=== PATIENT | female | born 1940 | race Caucasian/White ===

== ENCOUNTER → 2023-12-10 10:54 | Outpatient (REF) | payer OTHER, SELFPAY | LOC: RCS 10:54 | PROVIDERS: ATTENDING PHYSICIAN Internal Medicine Cardiovascular Disease; FAMILY PHYSICIAN Family Medicine | DX: I50.20 Unspecified systolic (congestive) heart failure (principal); I47.29 Other ventricular tachycardia; I48.0 Paroxysmal atrial fibrillation; E78.2 Mixed hyperlipidemia; Z95.0 Presence of cardiac pacemaker; Z79.01 Long term (current) use of anticoagulants; I42.8 Other cardiomyopathies | CPT/HCPCS: 93306 ==

== ENCOUNTER 2023-12-26 07:46 | Day surgery (SDC) | payer OTHER, SELFPAY ==
[2023-12-26] VITALS (14 sets, daily range): BP systolic 92–134; BP diastolic 54–89
--- NOTE | 2023-12-26 09:49 | W.ICD.CONTRA ---
Post ICD/LOG SCALER-D
-
History of MD?: No
LV Function
Left ventricular function study result?: Ejection Fraction </= 35%
ACEI/ARB/ARNI
Patient already on ACEI/ARB/ARNI: Yes
Beta-Marty
Patient already on Beta Marty: Yes
--- NOTE | 2023-12-26 14:25 | PTCARENOTE ---
Received patient at 1245 after upgrade BiVICD left upper chest. Patient AAO x 3, pulse ox low 90's and 2L NC given with pulse ox of 97%. Dressing left upper chest is dry and intact, with immobilizer in place. Post EKG done, patient denies any pain
or discomfort. Vpaced on the monitor. Assisted oob to the chair after one hour of bedrest. Call butt in reach, patient is aware to request assistance with ambulation, awaiting lunch.
--- NOTE | 2023-12-26 16:15 | ITS.CL.ICD ---
Lcsw - ICD
Implantable Cardioverter Defibrillator
Procedure Report:
Date of Procedure: December 26, 2023.
Procedures: Upgrade from a dual chamber pacemaker to a Bi-Ventricular ICD implant: Left Ventricular Lead placement, ICD implantation. Pacemaker pulse generator removal. Left upper extremity and coronary sinus venography.
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 Pacing percent over 90%; 3) The patient's life expectancy exceeds one year. Heart failure duration more than 1 year.
Performing physician: Maxi Mathur MD, [facility].
Today's Implants:
Pulse Generator: Medtronic; Model# [id number]; Serial# [id number].
Right Ventricular ICD Lead: Medtronic; Model# 2702Z54; Serial# [id number].
Left Ventricular Lead: Medtronic; Model# 4798-88cm; Serial# [id number].
Retained right atrial lead: Medtronic: Model# 5086MRI-45cm; Serial#: [id number] (implanted 02/18/2012).
Explanted pacemaker pulse generator: Medtronic; Model# [id number]; Serial# [id number] (implanted 02/18/2022).
Capped but reusable RV pacemaker lead:Medtronic; Model# 5086MRI-52cm; Serial#: [id number] (implanted 02/18/2012).
Procedural details: A time out was performed. The procedure site was identified. A left upper extremity venogram revealed patent axillary and subclavian veins. The patient was anesthetized by the anesthesia service. The patient was prepped and
draped in the usual fashion. Cefazolin was administered prior to the skin incision. Local anesthetic was applied to the left prepectoral subcutaneous tissue. The left axillary vein was accessed with two separate percutaneous micro- punctures without
difficulty. A 3 inch incision was made over the pacemaker scar. The leads were introduced with appropriately long 9Fr hemostatic peel away introducer sheaths. The right ventricular lead was placed at the right ventricular apical septum. The coronary
sinus was accessed with the aid of the Attain Command Sure Valve [id number] extended hook catheter within 30 seconds. Coronary sinus venography revealed a posterolateral and lateral veins, both of medium to large caliber. The left ventricular lead was
placed in the lateral vein with the aid of an inner canula. The lead was actively fixated with 3 clockwise turns. 8 volt pacing did not capture the diaphragm from any lead. The leads were secured to the pectoralis muscle and fascia. The pacemaker
pocket was entered and the pacemaker pulse generator explanted. The pocket was revised to allow the ICD to be placed. The RV pacing lead was capped. The old RA and new RV and LV leads were appropriately attached to the new BiV ICD generator device.
The pocket was irrigated with antibiotic solution. The device and leads were placed in the pocket. A [employer], Tyrx absorbable antibiotic envelop was used in the pocket. The incision was closed in three layers with absorbable suture. Steri strips
and an Aquacel dressing were applied. The estimated loss was 30 ml. There were no complications. Device based testing was performed as described below. Defibrillation threshold testing was not performed. IV contrast total: 30 ml. Fluoroscopy:
8.8minutes and DAP 2.48 GyCm2.
System Analysis:
RA lead: Afib: 1.4 mV; Impedance: 399 ohms.
RV lead: R: 7.6 mV; Threshold: 0.5 V @ 0.4 ms; Impedance: 703ohms. HVB 51 ohms
LV lead: Threshold: 1 V @ 0.4 ms; Impedance: 418 ohms. (LV3=>LV2). Electrical separation 180 ms. Many good vectors to chose from.
Final Programming: Tachy: VT/VF:188 bpm; Oscar: DDDR 60-130 bpm.
Conclusion:
Uncomplicated Upgrade to a Biventricular ICD.
The BiV ICD system is not labeled MRI safe/conditional because of the capped RV lead. Many centers will perform MRI on this ICD system if an MRI is clinically needed.
Recommendation: Routine post BiV ICD care.
cc: Khadar Mauro MD and Cristiane Kapoor MD.
[2023-12-26] MEDS: ANCEF 5 IV (16:51)
--- NOTE | 2023-12-26 17:41 | CM ---
spke to pt in room, he is prev indep, lives with his and son in a 2 story home with 2 steps to enter. he denies any dc planning needs or dme's. plan is for dc to home when medically stable.
--- NOTE | 2023-12-26 17:43 | CM ---
spoke to pt in room, she is prev indep, lives with her son in a 2 story home with 2 steps to enter. he denies any dc planning needs or dme's. plan is for dc to home when medically stable.
[2023-12-26] MEDS: TOPROL XL 50 MG PO (19:53)
[2023-12-26] MEDS: LIPITOR 10 MG PO (22:05)
[2023-12-27] MEDS: ANCEF 5 IV (00:12)
[2023-12-27] MEDS: FLUSH (NSS) 2 FLUSH IV (00:12)
--- NOTE | 2023-12-27 00:42 | PTCARENOTE ---
Pt. V-paced on the monitor, VSS. Left upper chest dressing CDI with good peripheral circulation and sensation assessed; immobilizer on. Pt. denies any pain/discomfort. Currently sleeping.
[2023-12-27 03:05] VITALS: BP 123/80
[2023-12-27 04:17] LABS: Hematocrit 36.6 % (37.0-47.0); Hemoglobin 12.3 g/dL (12.0-16.0); Mean Corp Hgb Conc. 33.6 g/dL (33.0-37.0); Mean Corpuscular Hgb 28.5 pg (27.0-31.0); Mean Corpuscular Volume 84.9 fL (81.0-99.0); Mean Platelet Volume 10.9 fL (7.4-10.4); Platelet Count 105 10^3/uL (130-400); Red Blood Cell Count 4.31 10^6/uL (4.20-5.40); Red Cell Dist. Width 15.4 % (11.5-14.5); White Blood Cell Count 11.2 10^3/uL (4.8-10.8)
[2023-12-27 04:27] LABS: Blood Urea Nitrogen 31 mg/dl (7-17); Calcium 10.3 mg/dl (8.4-10.2); Carbon Dioxide 27 mmol/L (22-30); Chloride 103 mmol/L (98-107); Glucose 111 mg/dl (70-99); Potassium 5.1 mmol/L (3.5-5.1); Sodium 139 mmol/L (135-145); eGFR 45.19
[2023-12-27 07:39] VITALS: BP 104/61
--- NOTE | 2023-12-27 08:29 | W.PN.CD ---
Today's Communication / Plan
-
discharge today
Impression / Plan
-
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
stie is fine patient feel s well. Creatinine up to 1.2.
Plan for discharge today
follow up labs next week and incision check next week,
Physical Exam
Vital Signs/Labs
Vital Signs
Temp Pulse Resp BP Pulse Ox
97.4 F 60 16 123/80 97
12/27/23 07:38 12/27/23 07:38 12/27/23 07:38 12/27/23 03:05 12/27/23 07:38
12/27/23 03:24
12/27/23 03:24
Physical Exam
Constitutional: No acute distress
Cardiovascular: Rhythm & rate is regular
Respiratory: Wheeze Absent, Crackles Absent and Rhonchi Absent
GI: Soft
Other: Other (left chest ICD site appears fine)
Data Reviewed
-
Date of Service: December 27, 2023
Medical Decision Making: Reviewed Test Results
X-Ray/CT/US/MRI/NUC/PET: Report Reviewed by me
Medical Tests (PFT, Pathology etc): Report Reviewed by me
[2023-12-27] MEDS: LASIX 20 MG PO (08:35)
[2023-12-27] MEDS: ALDACTONE 12.5 MG PO (08:35)
[2023-12-27] MEDS: TOPROL XL 50 MG PO (08:35)
[2023-12-27] MEDS: ZESTRIL 20 MG PO (08:35)
--- NOTE | 2023-12-27 08:39 | W.DS.TRANS ---
Addendum entered and electronically signed by MARLEE Sanchez 12/27/23 10:30:
Patient reported to nursing that she was not on spironolactone as OP. Nursing to cross this off the d/c list and can be further reviewed in follow-up. Won't start now since creat slightly elevated and s/p procedure.
Original Note:
DC Summary - [employer]
-
Discharge Instructions:
Discharge Diagnosis/Procedures Bi-V ICD upgrade
Diet Low Cholesterol,Low Sodium,2 Gram Sodium,
Restrict fluids to 48 oz
Activity Other activity
Additional Activity see activity restrictions on attached sheet
Driving Restrictions No driving for 1 week
Bathing Restrictions OK to Shower
Blood Work BMP one week - lab slip sent electronically to
[facility]
Specialty Instructions Weigh Daily
Instructions:
Stand-Alone Forms: DC Inst - Implanted Device
Changes to Home Medications: No
Discharge Medications:
DC Medications w/original date entered in [facility] - It's what's in store
acetaminophen 325 mg tablet 650 mg (2 x 325 mg) PO Q4HPRN PRN ANUGLO, mild pain, or fever >101F #0 tabs 03/21/23
atorvastatin 10 mg tablet 10 mg PO HS High cholesterol #0 tabs 03/23/23
furosemide 20 mg tablet (Lasix) 20 mg PO DAILY Fluid retention/Swelling #0 tabs 03/23/23
lisinopril 20 mg tablet 20 mg PO DAILY Heart Failure #0 tabs 03/23/23
metoprolol succinate 50 mg tablet,extended release 24 hr 50 mg PO BID Heart disease/condition #60 tabs 03/23/23
cholecalciferol (vitamin D3) 50 mcg (2,000 unit) capsule (Vitamin D3) 50 mcg PO DAILY 12/26/23
flaxseed oil 1,000 mg capsule 1,000 mg PO MOWEFR 12/26/23
spironolactone 25 mg tablet 12.5 mg PO DAILY 12/26/23
apixaban 5 mg tablet (Eliquis) 5 mg PO BID Blood clot prevention/tx #0 tabs 12/27/23 - resume in AM 12/29/23
Home Medication Changes
Pending Results: No
== END 2023-12-27 11:08 | disposition home or self-care (01) ==
LOC: CATH 07:46
PROVIDERS: Nurse Practitioner; ATTENDING PHYSICIAN Internal Medicine Cardiovascular Disease; FAMILY PHYSICIAN Family Medicine; OTHER PHYSICIAN Internal Medicine Cardiovascular Disease
DX: I42.8 Other cardiomyopathies (principal); I35.0 Nonrheumatic aortic (valve) stenosis; Z95.3 Presence of xenogenic heart valve; I49.5 Sick sinus syndrome; Z95.0 Presence of cardiac pacemaker; I10 Essential (primary) hypertension; I13.0 Hypertensive heart and chronic kidney disease with heart failure and stage 1 through stage 4 chronic kidney disease, or unspecified chronic kidney disease; I50.22 Chronic systolic (congestive) heart failure; N18.31 Chronic kidney disease, stage 3a; I34.0 Nonrheumatic mitral (valve) insufficiency; E78.5 Hyperlipidemia, unspecified; I48.91 Unspecified atrial fibrillation
CPT/HCPCS: 33249; 33225; 33233; 71045; 80048; 85027; 93005; C1769; C1777; C1882; C1887; C1892; C1900; Q9967